=== PATIENT | female | born 1990 | race Caucasian/White ===

== ENCOUNTER 2021-12-11 01:43 | Emergency (ER) | payer OTHER ==
[2021-12-11 02:43] VITALS: O2SAT 96
--- NOTE | 2021-12-11 02:48 | ERPHSYRPT ---
- History of Present Illness Time Seen by Provider: 12/11/21 02:48 Source: patient Exam Limitations: no limitations Patient Subjective Stated Complaint: pt states she has had a fever of 102 to 104 at home. pt has c/o headache 7/10, body aches and pain, rt upper chest pain increases with deep breath. denies shortness of breath. Triage Nursing Assessment: pt alert and oriented, answers questions approp. pt ambulatory with steady gait noted. respirations nonlabored with lungs cta. skin warm and dry. heart rate 75 on monitor, sinus rhythm. Timing/Duration: yesterday, gradual onset, improved Cough Quality/Degree: mild Possible Cause: no prior episodes Modifying Factors: Improves With: activity Associated Symptoms: fever, cough, muscle aches Allergies/Adverse Reactions: No Known Drug Allergies Allergy (Verified 12/11/21 02:43) Hx Tetanus, Diphtheria Vaccination/Date Given: Yes Hx Influenza Vaccination/Date Given: No Hx Pneumococcal Vaccination/Date Given: No Immunizations Up to Date: Yes Travel Risk - International Travel Have you traveled outside of the country in past 3 weeks: No - Coronavirus Screening Are you exhibiting any of the following symptoms?: Yes Symptoms: Fever, Cough: New Onset, Headaches/Body Aches/Fatigue Close contact with a COVID-19 positive Pt in past 14-21 Days: No - Vaccine Status Have you recieved a Covid-19 vaccination: No - Review of Systems Constitutional: Fever, Fatigue, Malaise Eyes: No Symptoms Ears, Nose, & Throat: No Symptoms Respiratory: No Symptoms Cardiac: No Symptoms Abdominal/Gastrointestinal: No Symptoms Genitourinary Symptoms: No Symptoms Musculoskeletal: No Symptoms Skin: No Symptoms Neurological: No Symptoms Psychological: No Symptoms Endocrine: No Symptoms Hematologic/Lymphatic: No Symptoms Immunological/Allergic: No Symptoms All Other Systems: Reviewed and Negative - Past Medical History Pertinent Past Medical History: No - Past Surgical History Past Surgical History: No - Social History Smoking Status: Former smoker Exposure to second hand smoke: No Patient Lives Alone: No - Female History Hx Last Menstrual Period: nov 23 Hx Now: No - Nursing Vital Signs Nursing Vital Signs: Initial Vital Signs Temperature 99.4 F 12/11/21 02:25 Pulse Rate 82 12/11/21 02:25 Respiratory Rate 18 12/11/21 02:25 Blood Pressure 109/70 12/11/21 02:25 O2 Sat by Pulse Oximetry 96 12/11/21 02:25 Pain Scale Pain Intensity 5 - Physical Exam General Appearance: mild distress Eye Exam: PERRL/EOMI, eyes nml inspection Ears, Nose, Throat Exam: normal ENT inspection, TMs normal, pharynx normal, moist mucous membranes Neck Exam: normal inspection, non-tender Respiratory Exam: normal breath sounds, airway intact Cardiovascular Exam: regular rate/rhythm, normal heart sounds Gastrointestinal/Abdomen Exam: soft, normal bowel sounds Pelvic Exam: not done Rectal Exam: deferred Back Exam: normal inspection Extremity Exam: normal inspection, normal range of motion Neurologic Exam: alert, oriented x 3, cooperative Skin Exam: normal color SpO2 Interpretation: normal SpO2: 96 O2 Delivery: Room Air - Course Nursing assessment & vital signs reviewed: Yes - Radiology Exams CXR X-ray Interpretation: Interpreted by me, Negative, No Pneumonia Ordered Tests: Active Orders 24 hr Category Date Time Status CHEST 1 VIEW (PORTABLE) Stat Exams 12/11/21 04:01 Taken CBC W DIFF Stat Lab 12/11/21 03:37 Completed CMP Stat Lab 12/11/21 03:37 Completed HCG QUALITATIVE,SERUM Stat Lab 12/11/21 03:37 Completed INFLUENZA A+B LUDIVINA Stat Lab 12/11/21 03:37 Completed Medication Summary Discontinued Medications Generic Name Dose Route Start Last Admin Trade Name Freq PRN Reason Stop Dose Admin Hydrocodone Bitart/Acetaminophen 1 tablet 12/11/21 03:35 12/11/21 03:45 Hydrocodone/Acetamin 10-325 Mg Tablet PO 12/11/21 03:36 1 tablet Q4H PRN ONE Administration Lab/Rad Data: Laboratory Result Diagrams 12/11/21 03:37 12/11/21 03:37 Laboratory Results 12/11/21 12/11/21 12/11/21 Range/Units 03:37 03:37 03:37 WBC (4.0-10.5) K/mm3 RBC (4.1-5.4) M/mm3 Hgb (12.0-16.0) gm/dl Hct (35-47) % MCV (78-100) fl MCH (26-32) pg MCHC (32-36) g/dl RDW (11.5-14.0) % Plt Count (150-450) K/mm3 MPV (7.5-11.0) fl Gran % (36.0-66.0) % Eos # (Auto) (0-0.5) Absolute Lymphs (auto) (1.0-4.6) Absolute Monos (auto) (0.0-1.3) Lymphocytes % (24.0-44.0) % Monocytes % (0.0-12.0) % Eosinophils % (0.00-5.0) % Basophils % (0.0-0.4) % Absolute Granulocytes (1.4-6.9) Basophils # (0-0.4) Sodium 135 L (137-145) mmol/L Potassium 3.7 (3.5-5.1) mmol/L Chloride 104 (98-107) mmol/L Carbon Dioxide 23 (22-30) mmol/L Anion Gap 11.1 (5-15) MEQ/L BUN 9 (7-17) mg/dL Creatinine 0.73 (0.52-1.04) mg/dL Estimated GFR > 60.0 ML/MIN Glucose 89 (74-106) mg/dL Calcium 8.2 L (8.4-10.2) mg/dL Total Bilirubin 0.50 (0.2-1.3) mg/dL AST 28 (14-36) U/L ALT 14 (0-35) U/L Alkaline Phosphatase 70 (38-126) U/L Serum Total Protein 6.5 (6.3-8.2) g/dL Albumin 3.9 (3.5-5.0) g/dL Serum , Qual NEGATIVE (Negative) Influenza Type A Ag NEGATIVE (NEGATIVE) Influenza Type B Ag NEGATIVE (NEGATIVE) Slides for Path Review 12/11/21 Range/Units 03:37 WBC 5.4 (4.0-10.5) K/mm3 RBC 4.04 L (4.1-5.4) M/mm3 Hgb 12.3 (12.0-16.0) gm/dl Hct 38.8 (35-47) % MCV 96.0 (78-100) fl MCH 30.4 (26-32) pg MCHC 31.7 L (32-36) g/dl RDW 12.2 (11.5-14.0) % Plt Count 156 (150-450) K/mm3 MPV 10.7 (7.5-11.0) fl Gran % 80.7 H (36.0-66.0) % Eos # (Auto) 0.02 (0-0.5) Absolute Lymphs (auto) 0.47 L (1.0-4.6) Absolute Monos (auto) 0.54 (0.0-1.3) Lymphocytes % 8.7 L (24.0-44.0) % Monocytes % 10.0 (0.0-12.0) % Eosinophils % 0.4 (0.00-5.0) % Basophils % 0.2 (0.0-0.4) % Absolute Granulocytes 4.37 (1.4-6.9) Basophils # 0.01 (0-0.4) Sodium (137-145) mmol/L Potassium (3.5-5.1) mmol/L Chloride (98-107) mmol/L Carbon Dioxide (22-30) mmol/L Anion Gap (5-15) MEQ/L BUN (7-17) mg/dL Creatinine (0.52-1.04) mg/dL Estimated GFR ML/MIN Glucose (74-106) mg/dL Calcium (8.4-10.2) mg/dL Total Bilirubin (0.2-1.3) mg/dL AST (14-36) U/L ALT (0-35) U/L Alkaline Phosphatase (38-126) U/L Serum Total Protein (6.3-8.2) g/dL Albumin (3.5-5.0) g/dL Serum , Qual (Negative) Influenza Type A Ag (NEGATIVE) Influenza Type B Ag (NEGATIVE) Slides for Path Review YES - Progress Progress: improved Air Movement: good Progress Note: 12/11/21 06:04 COVID symptoms, test sent out. She asks for pain med for the EDUARDO, uncomfortable, OTC med not helping, rx a few norco. Blood Culture(s) Obtained: No Antibiotics given: No Counseled pt/family regarding: lab results, diagnosis, need for follow-up, rad results - Departure Departure Disposition: Home Clinical Impression: Viral syndrome Condition: Stable Critical Care Time: No Referrals: DOCTOR,NO FAMILY [Primary Care Provider] - Follow up/PCP as directed Instructions: Headache, Adult, Coronavirus Disease 2019 (COVID-19) (DC) Additional Instructions: COVID test is pending. OTC med as helpful. Follow COVID guidelines for now. Prescriptions: Hydrocodone/Acetaminophen [Hydrocodone-Acetamin 7.5-325] 1 each PO Q6H PRN PRN #10 tablet MDD 4 PRN Reason: Pain
[2021-12-11] MEDS ORDERED: HYDROCODONE-ACETAMIN 10-325 MG PO ONE (03:35)
[2021-12-11 03:40] LABS: Absolute Neutrophil Ct (ANC) 4.37 (1.4-6.9); Basophil (Absolute #) 0.01 (0-0.4); Eosinophil % 0.4 % (0.00-5.0); Eosinophil (Absolute #) 0.02 (0-0.5); Hematocrit 38.8 % (35-47); Hemoglobin 12.3 gm/dl (12.0-16.0); Lymphocyte (Absolute #) 0.47 (1.0-4.6); Lymphocytes % 8.7 % (24.0-44.0); Mean Corpuscular Hemoglobin 30.4 pg (26-32); Mean Corpuscular Hgb Concent. 31.7 g/dl (32-36); Mean Platelet Volume 10.7 fl (7.5-11.0); Monocyte (Absolute #) 0.54 (0.0-1.3); Neutrophil % 80.7 % (36.0-66.0); Platelet Count 156 K/mm3 (150-450); Red Blood Count 4.04 M/mm3 (4.1-5.4); Red Cell Distribution Width 12.2 % (11.5-14.0); White Blood Count 5.4 K/mm3 (4.0-10.5)
[2021-12-11 03:59] LABS: ALBUMIN 3.9 g/dL (3.5-5.0); ALKALINE PHOSPHATASE 70 U/L (38-126); ANION GAP 11.1 MEQ/L (5-15); BLOOD UREA NITROGEN 9 mg/dL (7-17); CHLORIDE 104 mmol/L (98-107); Calcium 8.2 mg/dL (8.4-10.2); Carbon Dioxide 23 mmol/L (22-30); Creatinine 1 0.73 mg/dL (0.52-1.04); EST GLOMERULAR FILTRATION RATE > 60.0 ML/MIN; Glucose 89 mg/dL (74-106); INFLUENZA A NEGATIVE (NEGATIVE); INFLUENZA B NEGATIVE (NEGATIVE); Potassium 3.7 mmol/L (3.5-5.1); SGOT/AST 28 U/L (14-36); SGPT/ALT 14 U/L (0-35); SODIUM 135 mmol/L (137-145); Total Protein 6.5 g/dL (6.3-8.2)
[2021-12-11 04:31] VITALS: PULSE 87
[2021-12-11 05:18] VITALS: BP 111/67
[2021-12-11 05:32] LABS: Slide Review 1 YES
--- NOTE | 2021-12-11 08:09 | XRAY ---
Indication: Fever and cough. Comparison: None Portable chest demonstrates normal heart, lungs, and bony thorax.
== END 2021-12-11 05:40 | disposition home or self-care (01) ==
LOC: ED 01:43
DX: B34.9 Viral infection, unspecified (principal); R50.9 Fever, unspecified; R05.9 Cough, unspecified; R53.83 Other fatigue; Z79.891 Long term (current) use of opiate analgesic
CPT/HCPCS: 36415; 71045; 80053; 81025; 85025; 87400; 99284; U0003; A9270-GY

== ENCOUNTER 2022-09-03 22:26 | Observation (INO) | payer BC ==
[2022-09-03 22:59] LABS: Barbiturate,Urine NEGATIVE (NEGATIVE); Benzodiazepine,Urine NEGATIVE (NEGATIVE); Cocaine,Urine NEGATIVE (NEGATIVE); Methadone,Urine NEGATIVE (NEGATIVE); Opiate,Urine NEGATIVE (NEGATIVE); PCP,Urine NEGATIVE (NEGATIVE); THC,Urine NEGATIVE (NEGATIVE)
[2022-09-03 23:01] LABS: Amphetamine,Urine NEGATIVE (NEGATIVE)
[2022-09-03 23:13] LABS: Bacteria RARE /HPF (NEGATIVE); Epithelial Cells RARE /HPF (FEW); RBC 0-2 /HPF (0-2); WBC 0-2 /HPF (0-5)
[2022-09-03 23:20] LABS: Appearance CLEAR (CLEAR); Bilirubin NEGATIVE (NEGATIVE); Dipstick done @ ? MAIN LAB; Glucose NEGATIVE (NEGATIVE); Ketones NEGATIVE (NEGATIVE); Nitrite NEGATIVE (NEGATIVE); Protein,Urine Dip NEGATIVE (Negative); RBC NEGATIVE Ery/ul (0-5); Urobilinogen 0.2 mg/dL (0-1)
[2022-09-03 23:21] LABS: Urine Cultured Indicated? NO
[2022-09-04 00:01] VITALS: BP 132/88; PULSE 74; O2SAT 98
== END 2022-09-03 23:57 | disposition home or self-care (01) ==
LOC: OB 22:26
PROVIDERS: ADMIT Obstetrics & Gynecology; ATTEND Obstetrics & Gynecology
DX: Z34.83 Encounter for supervision of other normal pregnancy, third trimester (principal); Z3A.36 36 weeks gestation of pregnancy
CPT/HCPCS: 80307; 81015; G0378

== ENCOUNTER 2022-09-12 13:12 | Inpatient (IN) | payer BC ==
[2022-09-12] MEDS ORDERED: Lactated Ringers 1,000 ML IV ONE ×2 (14:12→14:26)
[2022-09-12] MEDS ORDERED: XYLOCAINE 1% HCL 20 ML MDV IJ PRN (14:26)
[2022-09-12] MEDS ORDERED: TYLENOL EXTRA STRENGTH 500 MG PO PRN ×2 (14:26→16:08)
[2022-09-12] MEDS ORDERED: Ephedrine Sulfate 50 MG/ML IV PRN (14:26)
[2022-09-12] MEDS ORDERED: Zofran 4 MG/2 ML VIAL IV PRN (14:26)
[2022-09-12] MEDS ORDERED: PITOCIN 30 UNITS/ LR 500 ML 30 UNITS/500 ML PLAST..BAG IV SCH (14:30)
[2022-09-12] MEDS ORDERED: Lactated Ringers 1,000 ML IV SCH (14:30)
[2022-09-12] MEDS ORDERED: FENTANYL 2 MCG-BUPIV 0.125%-NS 250 ML Epidur 250 ML EPIDURAL SCH (14:30)
[2022-09-12 15:02] LABS: Absolute Neutrophil Ct (ANC) 7.25 x10^3/uL (1.4-6.9); Basophil (Absolute #) 0.04 x10^3/uL (0-0.4); Eosinophil % 0.8 % (0.00-5.0); Eosinophil (Absolute #) 0.08 x10^3/uL (0-0.5); Hematocrit 34.8 % (35-47); Hemoglobin 11.3 g/dL (12.0-16.0); Lymphocyte (Absolute #) 1.44 x10^3/uL (1.0-4.6); Lymphocytes % 15.3 % (24.0-44.0); Mean Cell Volume 90.6 fL (78-100); Mean Corpuscular Hemoglobin 29.4 pg (26-32); Mean Corpuscular Hgb Concent. 32.5 g/dL (32-36); Mean Platelet Volume 10.9 fL (7.5-11.0); Monocyte (Absolute #) 0.57 x10^3/uL (0.0-1.3); Platelet Count 211 x10^3/uL (150-450); Red Blood Count 3.84 x10^6/uL (4.1-5.4); Red Cell Distribution Width 12.9 % (11.5-14.0); White Blood Count 9.4 x10^3/uL (4.0-10.5)
[2022-09-12 15:22] LABS: Benzodiazepine,Urine NEGATIVE (NEGATIVE); Cocaine,Urine NEGATIVE (NEGATIVE); Methadone,Urine NEGATIVE (NEGATIVE); PCP,Urine NEGATIVE (NEGATIVE); THC,Urine NEGATIVE (NEGATIVE)
[2022-09-12 15:28] LABS: Amphetamine,Urine NEGATIVE (NEGATIVE)
[2022-09-12 15:33] LABS: Barbiturate,Urine NEGATIVE (NEGATIVE); Opiate,Urine NEGATIVE (NEGATIVE)
[2022-09-12] MEDS ORDERED: CORTISONE 1% CREAM TP PRN (16:08)
[2022-09-12] MEDS ORDERED: Ambien 10 MG PO PRN (16:08)
[2022-09-12] MEDS ORDERED: Dermoplast Spray TP PRN (16:08)
[2022-09-12] MEDS ORDERED: LANSINOH 40 GM TOP PRN (16:08)
[2022-09-12] MEDS ORDERED: Dulcolax 10 MG SUPP PR PRN (16:08)
[2022-09-12] MEDS ORDERED: Anucort-HC SUPPOSITORY PR PRN (16:08)
[2022-09-12] MEDS ORDERED: TUCKS TP PRN (16:08)
[2022-09-12] MEDS ORDERED: Adacel Vial IM ONE (16:08)
[2022-09-12] MEDS ORDERED: Mylicon 80MG PO PRN (16:08)
[2022-09-12 16:29] LABS: ABO TYPING O; Antibody Screen NEGATIVE (NEGATIVE); RH TYPING POSITIVE
[2022-09-13] MEDS: MOTRIN 400 MG PO PRN ×3 (05:06→20:57)
[2022-09-13 05:14] LABS: Absolute Neutrophil Ct (ANC) 7.22 x10^3/uL (1.4-6.9); Basophil (Absolute #) 0.05 x10^3/uL (0-0.4); Eosinophil % 1.4 % (0.00-5.0); Eosinophil (Absolute #) 0.16 x10^3/uL (0-0.5); Hemoglobin 9.7 g/dL (12.0-16.0); Lymphocyte (Absolute #) 2.76 x10^3/uL (1.0-4.6); Lymphocytes % 24.6 % (24.0-44.0); Mean Cell Volume 90.4 fL (78-100); Mean Corpuscular Hemoglobin 29.2 pg (26-32); Mean Corpuscular Hgb Concent. 32.3 g/dL (32-36); Mean Platelet Volume 10.8 fL (7.5-11.0); Monocyte (Absolute #) 0.93 x10^3/uL (0.0-1.3); Monocytes % 8.3 % (0.0-12.0); Neutrophil % 64.6 % (36.0-66.0); Platelet Count 186 x10^3/uL (150-450); Red Blood Count 3.32 x10^6/uL (4.1-5.4); White Blood Count 11.2 x10^3/uL (4.0-10.5)
--- NOTE | 2022-09-13 07:36 | PCM.NOTE ---
Date and Time: 09/13/22734 Subjective Assessment: ppd 1 sp pt resting in bed and doing well able to ambulate and tolerate diet. vss afebrile abd; soft uterus; firm lochia; mild hgb; 9.7 ap sp ppd 1 dc home tomorrow fu office 3 wks OBJECTIVE DATA Vital Signs: Vital Signs - 24 hr Temp Pulse Resp BP BP Pulse Ox 09/13/22 02:00 98.3 F 67 18 134/80 98 09/13/22 00:00 98.7 F 77 18 93/58 96 09/12/22 20:00 98.7 F 77 18 93/58 96 09/12/22 17:00 78 18 133/72 09/12/22 16:30 62 16 131/75 09/12/22 16:10 72 18 134/75 09/12/22 15:55 98.3 F 81 22 144/74 09/12/22 15:40 88 22 136/62 09/12/22 15:08 107 H 22 124/85 09/12/22 14:35 83 24 09/12/22 14:27 16 112/80 09/12/22 14:00 98.3 F 62 16 112/80 Pain Assessment - Last Documented Pain Intensity [Anterior] 4 Pain Intensity 0 Pain Scale Used 0-10 Pain Scale Intake and Output: Intake & Output 09/10/22 09/11/22 09/12/22 09/13/22 11:59 11:59 11:59 11:59 Intake Total 1500 Balance 1500 Weight 60.328 kg Lab Results: Lab Results-Last 24 Hours 09/12/22 09/12/22 09/12/22 Range/Units 14:27 14:55 15:12 WBC 9.4 (4.0-10.5) x10^3/uL RBC 3.84 L (4.1-5.4) x10^6/uL Hgb 11.3 L (12.0-16.0) g/dL Hct 34.8 L (35-47) % MCV 90.6 (78-100) fL MCH 29.4 (26-32) pg MCHC 32.5 (32-36) g/dL RDW 12.9 (11.5-14.0) % Plt Count 211 (150-450) x10^3/uL MPV 10.9 (7.5-11.0) fL Gran % 77.0 H (36.0-66.0) % Immature Gran % (Auto) 0.5 H (0.00-0.4) % Nucleat RBC Rel Count 0.0 (0.00-0.1) % Eos # (Auto) 0.08 (0-0.5) x10^3/uL Immature Gran # (Auto) 0.05 H (0.00-0.03) x10^3u/L Absolute Lymphs (auto) 1.44 (1.0-4.6) x10^3/uL Absolute Monos (auto) 0.57 (0.0-1.3) x10^3/uL Absolute Nucleated RBC 0.00 (0.00-0.01) x10^3u/L Lymphocytes % 15.3 L (24.0-44.0) % Monocytes % 6.0 (0.0-12.0) % Eosinophils % 0.8 (0.00-5.0) % Basophils % 0.4 (0.0-0.4) % Absolute Granulocytes 7.25 H (1.4-6.9) x10^3/uL Basophils # 0.04 (0-0.4) x10^3/uL Urine Opiates Level NEGATIVE (NEGATIVE) Ur Methadone NEGATIVE (NEGATIVE) Urine Barbiturates NEGATIVE (NEGATIVE) Ur Phencyclidine (PCP) NEGATIVE (NEGATIVE) Urine Amphetamine NEGATIVE (NEGATIVE) U Benzodiazepine Level NEGATIVE (NEGATIVE) Urine Cocaine NEGATIVE (NEGATIVE) Urine Marijuana (THC) NEGATIVE (NEGATIVE) ABO Group O Rh Factor POSITIVE Antibody Screen NEGATIVE (NEGATIVE) 09/13/22 Range/Units 05:00 WBC 11.2 H (4.0-10.5) x10^3/uL RBC 3.32 L (4.1-5.4) x10^6/uL Hgb 9.7 L (12.0-16.0) g/dL Hct 30.0 L (35-47) % MCV 90.4 (78-100) fL MCH 29.2 (26-32) pg MCHC 32.3 (32-36) g/dL RDW 13.0 (11.5-14.0) % Plt Count 186 (150-450) x10^3/uL MPV 10.8 (7.5-11.0) fL Gran % 64.6 (36.0-66.0) % Immature Gran % (Auto) 0.7 H (0.00-0.4) % Nucleat RBC Rel Count 0.0 (0.00-0.1) % Eos # (Auto) 0.16 (0-0.5) x10^3/uL Immature Gran # (Auto) 0.08 H (0.00-0.03) x10^3u/L Absolute Lymphs (auto) 2.76 (1.0-4.6) x10^3/uL Absolute Monos (auto) 0.93 (0.0-1.3) x10^3/uL Absolute Nucleated RBC 0.00 (0.00-0.01) x10^3u/L Lymphocytes % 24.6 (24.0-44.0) % Monocytes % 8.3 (0.0-12.0) % Eosinophils % 1.4 (0.00-5.0) % Basophils % 0.4 (0.0-0.4) % Absolute Granulocytes 7.22 H (1.4-6.9) x10^3/uL Basophils # 0.05 (0-0.4) x10^3/uL Urine Opiates Level (NEGATIVE) Ur Methadone (NEGATIVE) Urine Barbiturates (NEGATIVE) Ur Phencyclidine (PCP) (NEGATIVE) Urine Amphetamine (NEGATIVE) U Benzodiazepine Level (NEGATIVE) Urine Cocaine (NEGATIVE) Urine Marijuana (THC) (NEGATIVE) ABO Group Rh Factor Antibody Screen (NEGATIVE) Assessment/Plan (1) Vaginal delivery Current Visit: Yes Status: Acute Code(s): O80 - ENCOUNTER FOR FULL-TERM UNCOMPLICATED DELIVERY
--- NOTE | 2022-09-13 07:39 | PCM.DS ---
Discharge Summary Date of Admission: 09/12/22 14:09 Admitting Physician: ANGIE SHANKAR DO Consults: Consults on Case 09/12/22 14:27 Notify Anesthesia Provider PRN 09/12/22 16:08 Notify Physician ROUTINE Primary Care Provider: NO FAMILY DOCTOR Allergies Allergies Penicillins Allergy (Verified 09/03/22 22:46) Hospital Summary - Hospital Course Hospital Course: pt admitted on sep 12 for being in labor and nonreasurring tracing with late deceleration variable decelerations noted on admission. pt subsequently h ad srom and delivered live baby boy without complication. during period did well able to ambulate and tolerate diet. pt at this time stable for discharge on sep 14. all questions answered to her satisfaction and was advised to fu in office in 3 wks. stable hgb at 9.7 - Vitals & Intake/Output Vital Signs: Vital Signs Temperature 98.3 F 09/13/22 02:00 Pulse Rate 67 09/13/22 02:00 Respiratory Rate 18 09/13/22 02:00 Blood Pressure 134/80 09/13/22 02:00 O2 Sat by Pulse Oximetry 98 09/13/22 02:00 Intake & Output: Intake & Output 09/10/22 09/11/22 09/12/22 09/13/22 11:59 11:59 11:59 11:59 Intake Total 1500 Balance 1500 Weight 60.328 kg - Lab Result Diagrams: 09/13/22 05:00 Lab Results-Last 24 Hrs: Lab Results-Last 24 Hours 09/12/22 09/12/22 09/12/22 Range/Units 14:27 14:55 15:12 WBC 9.4 (4.0-10.5) x10^3/uL RBC 3.84 L (4.1-5.4) x10^6/uL Hgb 11.3 L (12.0-16.0) g/dL Hct 34.8 L (35-47) % MCV 90.6 (78-100) fL MCH 29.4 (26-32) pg MCHC 32.5 (32-36) g/dL RDW 12.9 (11.5-14.0) % Plt Count 211 (150-450) x10^3/uL MPV 10.9 (7.5-11.0) fL Gran % 77.0 H (36.0-66.0) % Immature Gran % (Auto) 0.5 H (0.00-0.4) % Nucleat RBC Rel Count 0.0 (0.00-0.1) % Eos # (Auto) 0.08 (0-0.5) x10^3/uL Immature Gran # (Auto) 0.05 H (0.00-0.03) x10^3u/L Absolute Lymphs (auto) 1.44 (1.0-4.6) x10^3/uL Absolute Monos (auto) 0.57 (0.0-1.3) x10^3/uL Absolute Nucleated RBC 0.00 (0.00-0.01) x10^3u/L Lymphocytes % 15.3 L (24.0-44.0) % Monocytes % 6.0 (0.0-12.0) % Eosinophils % 0.8 (0.00-5.0) % Basophils % 0.4 (0.0-0.4) % Absolute Granulocytes 7.25 H (1.4-6.9) x10^3/uL Basophils # 0.04 (0-0.4) x10^3/uL Urine Opiates Level NEGATIVE (NEGATIVE) Ur Methadone NEGATIVE (NEGATIVE) Urine Barbiturates NEGATIVE (NEGATIVE) Ur Phencyclidine (PCP) NEGATIVE (NEGATIVE) Urine Amphetamine NEGATIVE (NEGATIVE) U Benzodiazepine Level NEGATIVE (NEGATIVE) Urine Cocaine NEGATIVE (NEGATIVE) Urine Marijuana (THC) NEGATIVE (NEGATIVE) ABO Group O Rh Factor POSITIVE Antibody Screen NEGATIVE (NEGATIVE) 09/13/22 Range/Units 05:00 WBC 11.2 H (4.0-10.5) x10^3/uL RBC 3.32 L (4.1-5.4) x10^6/uL Hgb 9.7 L (12.0-16.0) g/dL Hct 30.0 L (35-47) % MCV 90.4 (78-100) fL MCH 29.2 (26-32) pg MCHC 32.3 (32-36) g/dL RDW 13.0 (11.5-14.0) % Plt Count 186 (150-450) x10^3/uL MPV 10.8 (7.5-11.0) fL Gran % 64.6 (36.0-66.0) % Immature Gran % (Auto) 0.7 H (0.00-0.4) % Nucleat RBC Rel Count 0.0 (0.00-0.1) % Eos # (Auto) 0.16 (0-0.5) x10^3/uL Immature Gran # (Auto) 0.08 H (0.00-0.03) x10^3u/L Absolute Lymphs (auto) 2.76 (1.0-4.6) x10^3/uL Absolute Monos (auto) 0.93 (0.0-1.3) x10^3/uL Absolute Nucleated RBC 0.00 (0.00-0.01) x10^3u/L Lymphocytes % 24.6 (24.0-44.0) % Monocytes % 8.3 (0.0-12.0) % Eosinophils % 1.4 (0.00-5.0) % Basophils % 0.4 (0.0-0.4) % Absolute Granulocytes 7.22 H (1.4-6.9) x10^3/uL Basophils # 0.05 (0-0.4) x10^3/uL Urine Opiates Level (NEGATIVE) Ur Methadone (NEGATIVE) Urine Barbiturates (NEGATIVE) Ur Phencyclidine (PCP) (NEGATIVE) Urine Amphetamine (NEGATIVE) U Benzodiazepine Level (NEGATIVE) Urine Cocaine (NEGATIVE) Urine Marijuana (THC) (NEGATIVE) ABO Group Rh Factor Antibody Screen (NEGATIVE) Final Diagnosis/Problem List - Final Discharge Diagnosis/Problem (1) Vaginal delivery Current Visit: Yes Status: Acute Code(s): O80 - ENCOUNTER FOR FULL-TERM UNCOMPLICATED DELIVERY - Discharge Disposition: Home, Self-Care Condition: Stable Prescriptions: No Action Valacyclovir HCl [Valtrex] 500 mg PO BID Mv-Mn/Iron/FA/Herbal/Digestive [ One Tablet] 1 each PO DAILY Follow up with: DOCTOR,NO FAMILY [Primary Care Provider] - ANGIE SHANKAR DO [ACTIVE STAFF] - 3 weeks (should fu in office in 3 wks should call office for any issues that may arise)
[2022-09-13] MEDS: Docusate Sodium 100 MG PO SCH ×2 (09:29→20:57)
[2022-09-13] MEDS: FERREX 150 PO SCH (09:30)
--- NOTE | 2022-09-14 08:01 | PCM.NOTE ---
Date and Time: 09/14/22 0800 Subjective Assessment: ppd 1 sp pt resting in bed and doing well vss afebrile abd; soft uterus; firm lochia; mild a/p sp ppd 1 dc home today fu office 3 wks OBJECTIVE DATA Vital Signs: Vital Signs - 24 hr Temp Pulse Resp BP 09/14/22 02:00 98.2 F 75 18 113/58 09/13/22 20:00 98.4 F 78 18 96/65 09/13/22 14:00 98.4 F 85 18 102/56 Pain Assessment - Last Documented Pain Intensity [Anterior] 1 Pain Intensity 0 Pain Scale Used 0-10 Pain Scale Intake and Output: Intake & Output 09/11/22 09/12/22 09/13/22 09/14/22 11:59 11:59 11:59 11:59 Intake Total 4500 1200 Balance 4500 1200 Weight 60.328 kg Assessment/Plan (1) Vaginal delivery Current Visit: Yes Status: Acute Code(s): O80 - ENCOUNTER FOR FULL-TERM UNCOMPLICATED DELIVERY
[2022-09-14 09:22] VITALS: BP 126/75; PULSE 64; O2SAT 94
[2022-09-14] MEDS: MOTRIN 400 MG PO PRN (10:34)
[2022-09-14] MEDS: FERREX 150 PO SCH (11:11)
[2022-09-14 13:40] LABS: HBsAg Screen Negative (Negative)
[2022-09-15 08:51] LABS: HBsAg Screen Negative (Negative)
== END 2022-09-14 10:55 | disposition home or self-care (01) | DRG 807 ==
LOC: OB 13:12 → OBSVTOIN 14:09
PROVIDERS: ADMIT Obstetrics & Gynecology; ATTEND Obstetrics & Gynecology
PROC: 10E0XZZ Delivery of Products of Conception, External Approach (ICD-10-PCS; principal; 2022-09-12)
DX: O76 Abnormality in fetal heart rate and rhythm complicating labor and delivery (principal); Z37.0 Single live birth; Z3A.37 37 weeks gestation of pregnancy; Z20.828 Contact with and (suspected) exposure to other viral communicable diseases
CPT/HCPCS: 36415; 59400; 80307; 85025; 86850; 86900; 86901; 87340; 90715; J2590; A9270-GY

== ENCOUNTER 2023-02-17 20:41 | Emergency (ER) | payer BC ==
--- NOTE | 2023-02-17 20:49 | ERPHSYRPT ---
- History of Present Illness Time Seen by Provider: 02/17/23 20:49 Historian: patient Exam Limitations: no limitations Physician History: This is a 32-year-old white female patient who is breast-feeding because she states the child will not take a bottle feed and presents with right-sided abdominal pain that was relatively sudden in onset this evening prior to arrival. In the last 2 months she has had intermittent episodes of this particularly after eating. For lunch today, the patient had pizza. Later in the evening prior to arrival, she had the pain onset. Usually she has some nausea associated with it but today she did not have the associated nausea. Patient arrives to the emergency department and her pain is still present but subsiding. Patient has not noticed any dark urine or acholic stools. She has not noticed her skin or eyes having a yellow tinge. Patient delivered a child in August 2022. Patient denies fever. Patient denies chest pain. Patient denies shortness of breath. She has not had any diarrhea Timing/Duration: today, worse Quality: sharpness Abdominal Pain Onset Location: RUQ Pain Radiation: no radiation Severity of Pain-Current: mild Modifying Factors: Improves With: nothing Associated Symptoms: denies symptoms Previous symptoms: same symptoms as today, no recent treatment Allergies/Adverse Reactions: Penicillins Allergy (Verified 02/17/23 20:55) Home Medications: Mv-Mn/Iron/FA/Herbal/Digestive [ One Tablet] 1 each PO DAILY 09/03/22 [History] Medroxyprogesterone Acetate [Depo-Subq Provera 104] 150 mg IM UD 02/17/23 [History] Sertraline HCl 50 mg [Zoloft 50 mg Tablet] 50 mg PO DAILY 02/17/23 [History] Hx Tetanus, Diphtheria Vaccination/Date Given: Yes Hx Influenza Vaccination/Date Given: No Hx Pneumococcal Vaccination/Date Given: No Travel Risk - International Travel Have you traveled outside of the country in past 3 weeks: No - Coronavirus Screening Are you exhibiting any of the following symptoms?: No Close contact with a COVID-19 positive Pt in past 14-21 Days: No - Vaccine Status Have you recieved a Covid-19 vaccination: No - Review of Systems Constitutional: No Symptoms Eyes: No Symptoms Ears, Nose, & Throat: No Symptoms Respiratory: No Symptoms Cardiac: No Symptoms Abdominal/Gastrointestinal: Abdominal Pain, No Nausea, No Vomiting (Right side), No Diarrhea, No Constipation Genitourinary Symptoms: No Symptoms Musculoskeletal: No Symptoms Skin: No Symptoms Neurological: No Symptoms Psychological: No Symptoms Endocrine: No Symptoms Hematologic/Lymphatic: No Symptoms Immunological/Allergic: No Symptoms All Other Systems: Reviewed and Negative - Past Medical History Pertinent Past Medical History: No Other Medical History: states hx of hewrpes on valtrex - Past Surgical History Past Surgical History: No - Social History Smoking Status: Former smoker How long have you smoked: 15 YEARS Exposure to second hand smoke: Yes Patient Lives Alone: No - Nursing Vital Signs Nursing Vital Signs: Initial Vital Signs Temperature 98.5 F 02/17/23 20:49 Pulse Rate 60 02/17/23 20:49 Respiratory Rate 16 02/17/23 20:49 Blood Pressure 161/99 02/17/23 20:49 O2 Sat by Pulse Oximetry 97 02/17/23 20:49 Pain Scale Pain Intensity 5 - Physical Exam General Appearance: no apparent distress, alert, anxiety, thin Eye Exam: PERRL/EOMI, eyes nml inspection Ears, Nose, Throat Exam: normal ENT inspection, moist mucous membranes Neck Exam: normal inspection, non-tender, supple, full range of motion Respiratory Exam: normal breath sounds, lungs clear, airway intact, No chest tenderness, No respiratory distress Cardiovascular Exam: regular rate/rhythm, normal heart sounds, normal peripheral pulses Gastrointestinal/Abdomen Exam: soft, normal bowel sounds, tenderness (Mild right upper quadrant to palpation), guarding (Mild right upper quadrant with palpation), No rebound Pelvic Exam: not done Rectal Exam: not done Back Exam: normal inspection, normal range of motion, No CVA tenderness, No vertebral tenderness Extremity Exam: normal inspection, normal range of motion, pelvis stable Neurologic Exam: alert, oriented x 3, cooperative, cryolite recovery operator II-XII nml as tested, normal mood/affect, nml cerebellar function, nml station & gait, sensation nml Skin Exam: normal color, warm, dry Lymphatic Exam: No adenopathy SpO2 Interpretation: normal O2 Delivery: Room Air - Course Nursing assessment & vital signs reviewed: Yes Ordered Tests: Active Orders 24 hr Category Date Time Status IV Insertion STAT Care 02/17/23 21:01 Active ABDOMEN AND PELVIS W/0 CONTRAS [CT] Stat Exams 02/17/23 21:02 Completed AMYLASE Stat Lab 02/17/23 21:15 Completed CBC W DIFF Stat Lab 02/17/23 21:15 Completed CMP Stat Lab 02/17/23 21:15 Completed LIPASE Stat Lab 02/17/23 21:15 Completed UA W/RFX UR CULTURE Stat Lab 02/17/23 21:10 Completed Medication Summary Generic Name Dose Route Start Last Admin Trade Name Mandy PRN Reason Stop Dose Admin Sodium Chloride 1,000 mls @ 999 mls/hr 02/17/23 21:01 02/17/23 21:07 Sodium Chloride 0.9% 1000 Ml IV 02/17/23 22:01 999 mls/hr .[id number] STA Administration Discontinued Medications Generic Name Dose Route Start Last Admin Trade Name Freq PRN Reason Stop Dose Admin Sodium Chloride Confirm 02/17/23 21:04 Sodium Chloride 0.9% 1000 Ml Administered 02/17/23 21:05 Dose 1,000 mls @ ud .ROUTE .STK-MED ONE Ketorolac Tromethamine 30 mg 02/17/23 21:21 02/17/23 21:33 Ketorolac Tromethamine 30 Mg/Ml Inj IV 02/17/23 21:22 30 mg STAT ONE Administration Ketorolac Tromethamine Confirm 02/17/23 21:33 Ketorolac Tromethamine 30 Mg/Ml Inj Administered 02/17/23 21:34 Dose 30 mg .ROUTE .STK-MED ONE Ondansetron HCl 4 mg 02/17/23 21:01 02/17/23 21:07 Ondansetron Hcl 4 Mg/2 Ml Vial IV 02/17/23 21:02 4 mg STAT ONE Administration Ondansetron HCl Confirm 02/17/23 21:04 Ondansetron Hcl 4 Mg/2 Ml Vial Administered 02/17/23 21:05 Dose 4 mg .ROUTE .STK-MED ONE Lab/Rad Data: Laboratory Result Diagrams 02/17/23 21:15 02/17/23 21:15 Laboratory Results 02/17/23 02/17/23 02/17/23 Range/Units 21:15 21:15 21:10 WBC 10.4 (4.0-10.5) x10^3/uL RBC 4.39 (4.1-5.4) x10^6/uL Hgb 13.1 (12.0-16.0) g/dL Hct 40.6 (35-47) % MCV 92.5 (78-100) fL MCH 29.8 (26-32) pg MCHC 32.3 (32-36) g/dL RDW 11.9 (11.5-14.0) % Plt Count 241 (150-450) x10^3/uL MPV 10.6 (7.5-11.0) fL Gran % 57.6 (36.0-66.0) % Immature Gran % (Auto) 0.5 H (0.00-0.4) % Nucleat RBC Rel Count 0.0 (0.00-0.1) % Eos # (Auto) 0.33 (0-0.5) x10^3/uL Immature Gran # (Auto) 0.05 H (0.00-0.03) x10^3u/L Absolute Lymphs (auto) 3.27 (1.0-4.6) x10^3/uL Absolute Monos (auto) 0.69 (0.0-1.3) x10^3/uL Absolute Nucleated RBC 0.00 (0.00-0.01) x10^3u/L Lymphocytes % 31.5 (24.0-44.0) % Monocytes % 6.6 (0.0-12.0) % Eosinophils % 3.2 (0.00-5.0) % Basophils % 0.6 (0.0-0.4) % Absolute Granulocytes 5.98 (1.4-6.9) x10^3/uL Basophils # 0.06 (0-0.4) x10^3/uL Sodium 142 (137-145) mmol/L Potassium 3.8 (3.5-5.1) mmol/L Chloride 106 (98-107) mmol/L Carbon Dioxide 25 (22-30) mmol/L Anion Gap 14.5 (5-15) MEQ/L BUN 14 (7-17) mg/dL Creatinine 0.65 (0.52-1.04) mg/dL Estimated GFR > 60.0 ML/MIN Glucose 87 (74-106) mg/dL Calcium 9.6 (8.4-10.2) mg/dL Total Bilirubin 0.40 (0.2-1.3) mg/dL AST 23 (14-36) U/L ALT 19 (0-35) U/L Alkaline Phosphatase 94 (38-126) U/L Serum Total Protein 7.8 (6.3-8.2) g/dL Albumin 4.7 (3.5-5.0) g/dL Amylase 73 (30-110) U/L Lipase 109 (23-300) U/L Urine Color Yellow (Yellow) Urine Appearance Cloudy A (Clear) Urine pH 7.0 (4.6-8.0) Ur Specific [place] 1.015 (1.005-1.030) Urine Protein Negative (Negative) Urine Glucose (UA) Negative (Negative) mg/dL Urine Ketones Negative (Negative) Urine Blood Negative (Negative) Urine Nitrite Negative (Negative) Urine Bilirubin Negative (Negative) Urine Urobilinogen 1.0 A (0.2) mg/dL Ur Leukocyte Esterase Trace A (Negative) U Hyaline Cast (Auto) NONE SEEN (0-2) /LPF Urine Microscopic RBC 0-2 (0-5) /HPF Urine Microscopic WBC 0-2 (0-5) /HPF Ur Epithelial Cells None Seen (None Seen) /HPF Urine Bacteria None Seen (None Seen) /HPF Urine Culture Reflexed NO (NO) - Progress Progress: improved, pain not gone completely, re-examined Progress Note: 02/17/23 21:59 CAT scan of the abdomen pelvis without contrast shows no acute intra-abdominal or intra pelvic process. The appendix is visualized and it is normal. 02/17/23 21:59 The medical issue of this patient is of moderate complexity. The medical complexity level and work-up performed is determined by review of the patient's past medical history, review of the patient's medication list, review of the patient's drug allergy list, history of present illness, and physical findings on examination. The patient is having right-sided abdominal pain. The work-up includes placement of intravenous line, infusion of intravenous fluids, infusion of Zofran intravenously, infusion of Toradol intravenously, obtaining urinal ysis, performing a CBC, CMP amylase and lipase levels. The results of the study show no acute abnormality. Likely, the patient's symptoms are related to gallbladder issues. Her symptoms are improving. The discharge plan will be for her to avoid any fatty greasy spicy foods. She may use Tylenol and ibuprofen for pain control. She should follow-up with her primary care provider to perform an outpatient gallbladder ultrasound and obtain referral to a general surgeon if indicated. Counseled pt/family regarding: lab results, diagnosis, need for follow-up, rad results Medical Desision Making - Discussion of managment Reviewed:: Test results, Need for additional workup Agreed on:: Treatment plan, need for follow-up - Diagnostic Testing Radiological Interpretation: Reviewed by me - Risk of complications The pt has a mod risk of morbidity or mortality based on: Need for prescription drug management - Departure Departure Disposition: Home Clinical Impression: Right sided abdominal pain Condition: Stable Critical Care Time: No Referrals: DOCTOR,NO FAMILY [Primary Care Provider] - Follow up/PCP as directed Additional Instructions: Drink plenty of clear liquids. Avoid fatty greasy spicy foods. Follow-up with your primary care provider for further evaluation management including ordering an outpatient gallbladder ultrasound and referral to a general surgeon if indicated. Use Tylenol and ibuprofen for pain control. Prescriptions: Ondansetron ODT 4 MG [Zofran Odt 4 mg] 4 mg PO Q6H PRN PRN #10 tablet PRN Reason: Vomiting
[2023-02-17] MEDS ORDERED: Sodium Chloride 0.9% 1000 ML 1,000 ML IV STA (21:01)
[2023-02-17] MEDS ORDERED: Zofran 4 MG/2 ML VIAL IV ONE (21:01)
[2023-02-17] MEDS ORDERED: Zofran 4 MG/2 ML VIAL ONE (21:04)
[2023-02-17] MEDS ORDERED: Sodium Chloride 0.9% 1000 ML 1,000 ML ONE (21:04)
[2023-02-17 21:18] LABS: Absolute Neutrophil Ct (ANC) 5.98 x10^3/uL (1.4-6.9); BASOPHIL % 0.6 % (0.0-0.4); Basophil (Absolute #) 0.06 x10^3/uL (0-0.4); Eosinophil % 3.2 % (0.00-5.0); Eosinophil (Absolute #) 0.33 x10^3/uL (0-0.5); Hematocrit 40.6 % (35-47); Hemoglobin 13.1 g/dL (12.0-16.0); IMMATURE GRAN # 0.05 x10^3u/L (0.00-0.03); IMMATURE GRAN % 0.5 % (0.00-0.4); Lymphocyte (Absolute #) 3.27 x10^3/uL (1.0-4.6); Lymphocytes % 31.5 % (24.0-44.0); Mean Cell Volume 92.5 fL (78-100); Mean Corpuscular Hemoglobin 29.8 pg (26-32); Mean Corpuscular Hgb Concent. 32.3 g/dL (32-36); Mean Platelet Volume 10.6 fL (7.5-11.0); Monocyte (Absolute #) 0.69 x10^3/uL (0.0-1.3); Monocytes % 6.6 % (0.0-12.0); Neutrophil % 57.6 % (36.0-66.0); Platelet Count 241 x10^3/uL (150-450); Red Blood Count 4.39 x10^6/uL (4.1-5.4); Red Cell Distribution Width 11.9 % (11.5-14.0); White Blood Count 10.4 x10^3/uL (4.0-10.5)
[2023-02-17] MEDS ORDERED: TORAdol 30 mg Injection IV ONE (21:21)
[2023-02-17 21:27] LABS: Appearance Cloudy (Clear); Bacteria None Seen /HPF (None Seen); Bilirubin Negative (Negative); Blood Negative (Negative); Epithelial Cells None Seen /HPF (None Seen); Glucose, Urine Negative (Negative); Hyaline Casts NONE SEEN /LPF (0-2); Ketones Negative (Negative); Leukocyte Esterase Trace (Negative); Nitrite Negative (Negative); Protein,Urine Dip Negative (Negative); RBC 0-2 /HPF (0-5); Specific Gravity 1.015 (1.005-1.030); WBC 0-2 /HPF (0-5)
[2023-02-17 21:28] LABS: ADD URINE CULTURE? NO (NO)
[2023-02-17 21:30] LABS: ALBUMIN 4.7 g/dL (3.5-5.0); ALKALINE PHOSPHATASE 94 U/L (38-126); AMYLASE 73 U/L (30-110); ANION GAP 14.5 MEQ/L (5-15); BLOOD UREA NITROGEN 14 mg/dL (7-17); CHLORIDE 106 mmol/L (98-107); Calcium 9.6 mg/dL (8.4-10.2); Carbon Dioxide 25 mmol/L (22-30); Creatinine 1 0.65 mg/dL (0.52-1.04); EST GLOMERULAR FILTRATION RATE > 60.0 ML/MIN; Glucose 87 mg/dL (74-106); LIPASE 109 U/L (23-300); Potassium 3.8 mmol/L (3.5-5.1); SGOT/AST 23 U/L (14-36); SGPT/ALT 19 U/L (0-35); SODIUM 142 mmol/L (137-145); Total Protein 7.8 g/dL (6.3-8.2)
[2023-02-17] MEDS ORDERED: TORAdol 30 mg Injection ONE (21:33)
[2023-02-17 21:46] VITALS: PULSE 58
--- NOTE | 2023-02-17 21:57 | XRAY ---
Indication: Right abdomen pain. Multiple contiguous axial images obtained through the abdomen and pelvis without contrast. Comparison: None Lung bases clear. Heart not enlarged. Noncontrasted stomach and bowel loops appear nonobstructed with normal appendix. Moderate diffuse scattered colonic fecal debris throughout. Nonobstructing faint bilateral nephrocalcinosis. No free fluid/air. Remaining liver, gallbladder, pancreas, spleen, adrenal glands, kidneys, ureters, bladder, uterus, and aorta are unremarkable for noncontrast exam. Osseous structures intact. No ventral or inguinal hernias. Impression: 1. Moderate diffuse fecal stasis. 2. Nonobstructing bilateral nephrocalcinosis.
[2023-02-17 22:05] VITALS: BP 111/67; O2SAT 98
== END 2023-02-17 22:23 | disposition home or self-care (01) ==
LOC: ED 20:41
DX: R10.11 Right upper quadrant pain (principal); Z79.899 Other long term (current) drug therapy; Z28.310 Unvaccinated for COVID-19
CPT/HCPCS: 36000; 36415; 74176; 80053; 81001; 82150; 83690; 85025; 96360; 96374; 99284; J1885; J2405

== ENCOUNTER 2023-03-17 06:07 | Day surgery (SDC) | payer BC ==
[2023-03-17] MEDS ORDERED: Xylocaine-Mpf 2% 5 Ml Vial ONE (06:14)
[2023-03-17] MEDS ORDERED: DIPRIVAN 200 MG/20 ML IV ONE (06:14)
[2023-03-17] MEDS ORDERED: Versed 2 MG/2 ML Injection ONE (06:14)
[2023-03-17 06:21] LABS: HCG URINE TEST NEGATIVE (NEGATIVE)
[2023-03-17] MEDS ORDERED: Lactated Ringers 1,000 ML IV SCH (06:30)
[2023-03-17] MEDS ORDERED: Lactated Ringers 1,000 ML IV ONE (06:38)
[2023-03-17 07:56] VITALS: O2SAT 100
--- NOTE | 2023-03-17 08:10 | OP ---
SURGERY DATE/TIME: 03/17/2023 0710 PREOPERATIVE DIAGNOSIS: Abdominal pain. POSTOPERATIVE DIAGNOSIS: Mild gastritis. PROCEDURE: Esophagogastroduodenoscopy with cold forceps biopsy. SURGEON: Dr. Ricks. ANESTHESIA: Medications were given by the anesthesia department. BRIEF HISTORY: The patient is a 32-year-old white female who has been complaining of abdominal pain for several months. She tried omeprazole and Tums with minimal to no relief. The patient is felt the need to have endoscopic evaluation. She was appraised of the risks of the procedure including the risk of perforation, phlebitis, untoward reaction to medication, sore throat. The patient verbalized her understanding and desired to have the procedure performed. DESCRIPTION OF PROCEDURE: The patient was given the medications by the anesthesia department. She had continuous pulse oximetry, ECG monitoring and intermittent blood pressure monitoring during the examination. She was placed in the left lateral decubitus position. A bite block was placed and the flexible Olympus gastroscope was used to intubate the oropharynx. The scope was easily introduced in the esophagus which appeared to be normal throughout its length. The stomach was entered where normal gastric rugal folds were seen and these distended nicely with insufflation of air. The scope was passed along the greater curvature of the stomach to the antrum. The pylorus was encountered and intubated. The duodenum inspected and found to be normal. The scope is withdrawn towards the stomach. A retroflex view was obtained of the lesser curvature, fundus and cardia regions of the stomach and these appeared to be essentially normal. The scope was then redirected towards the gastric antrum and biopsies were obtained from the gastric antrum to rule out the presence of Helicobacter pylori-type organisms. The scope was then removed from the patient who tolerated the procedure well and was sent back to outpatient recovery in good condition.
[2023-03-17 08:18] VITALS: BP 128/74; PULSE 62
== END 2023-03-17 08:20 | disposition home or self-care (01) ==
LOC: SDC 06:07
PROVIDERS: ATTEND Family Medicine
DX: K29.70 Gastritis, unspecified, without bleeding (principal); R10.9 Unspecified abdominal pain
CPT/HCPCS: 36415; 81025; J2250; J2704

== ENCOUNTER 2023-11-08 17:30 | Emergency (ER) | payer BC ==
[2023-11-08 17:47] VITALS: RESP 18; TEMP 97.2
[2023-11-08 17:51] LABS: HCG URINE TEST NEGATIVE (NEGATIVE)
[2023-11-08 17:55] LABS: Appearance Clear (Clear); Bacteria Rare /HPF (None Seen); Bilirubin Negative (Negative); Blood Negative (Negative); Epithelial Cells None Seen /HPF (None Seen); Glucose, Urine Negative (Negative); Hyaline Casts NONE SEEN /LPF (0-2); Ketones Negative (Negative); Leukocyte Esterase Small (Negative); Nitrite Negative (Negative); Ph 6.5 (4.6-8.0); Protein,Urine Dip Negative (Negative); WBC 21-50 /HPF (0-5)
[2023-11-08 18:05] LABS: ADD URINE CULTURE? YES (NO)
[2023-11-08] MEDS ORDERED: KEFLEX 500 MG PO ONE (18:45)
--- NOTE | 2023-11-08 18:45 | ERPHSYRPT ---
- History of Present Illness Time Seen by Provider: 11/08/23 17:55 Source: patient Exam Limitations: no limitations Patient Subjective Stated Complaint: pt here for a possible UTI for 3 days now. burning with urination, back pain, pt has frequent UTI Triage Nursing Assessment: pt alert, walked in, resp easy, skin w/d/p. abd flat, no edema noted Physician History: This is a 33-year-old white female patient who has urinary tract infection symptoms for the last 3 days including hematuria and dysuria. She states her symptoms are worse today. Patient is breast-feeding. Patient has a history of frequent UTIs. Patient has had Keflex in the past without problems. Patient denies nausea and vomiting. She has no abdominal pain. She has mild flank pain. Timing/Duration: day(s) (3) Activites at Onset: none Quality: burning Onset Location: generalized flank (Mild) Pain Radiation: generalized flank Severity of Pain-Max: mild Severity of Pain-Current: mild Sexual intercourse history: non-contributory Modifying Factors: Improves With: nothing Associated Symptoms: dysuria, lower back pain, other (Hematuria) Allergies/Adverse Reactions: Penicillins Allergy (Verified 11/08/23 17:43) Home Medications: Medroxyprogesterone Acetate [Depo-Subq Provera 104] 150 mg IM UD 02/17/23 [History] Sertraline HCl 50 mg [Zoloft 50 mg Tablet] 50 mg PO DAILY 02/17/23 [History] Hx Tetanus, Diphtheria Vaccination/Date Given: Yes Hx Influenza Vaccination/Date Given: No Hx Pneumococcal Vaccination/Date Given: No Travel Risk - International Travel Have you traveled outside of the country in past 3 weeks: No - Coronavirus Screening Are you exhibiting any of the following symptoms?: No Close contact with a COVID-19 positive Pt in past 14-21 Days: No - Vaccine Status Have you recieved a Covid-19 vaccination: No - Review of Systems Constitutional: No Symptoms Eyes: No Symptoms Ears, Nose, & Throat: No Symptoms Respiratory: No Symptoms Cardiac: No Symptoms Abdominal/Gastrointestinal: No Abdominal Pain Genitourinary Symptoms: Dysuria, Hematuria, Flank Pain (Mild generalized) Musculoskeletal: No Symptoms Skin: No Symptoms Neurological: No Symptoms Psychological: No Symptoms Endocrine: No Symptoms Hematologic/Lymphatic: No Symptoms Immunological/Allergic: No Symptoms All Other Systems: Reviewed and Negative - Past Medical History Pertinent Past Medical History: Yes Neurological History: No Pertinent History ENT History: No Pertinent History Cardiac History: No Pertinent History Respiratory History: No Pertinent History Endocrine Medical History: No Pertinent History, Other Musculoskeletal History: No Pertinent History GI Medical History: No Pertinent History History: No Pertinent History Psycho-Social History: Anxiety, Depression Female Reproductive Disorders: No Pertinent History Other Medical History: 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, sponge kidney, hx uti's - Past Surgical History Past Surgical History: No Neuro Surgical History: No Pertinent History Cardiac: No Pertinent History Respiratory: No Pertinent History Genitourinary: No Pertinent History Musculoskeletal: No Pertinent History Female Surgical History: No Pertinent History Other Surgical History: IUD removal - Social History Smoking Status: Never smoker How long have you smoked: 15 YEARS Exposure to second hand smoke: Yes Drug Use: none Patient Lives Alone: No - Female History Hx Last Menstrual Period: unsure Hx Now: No - Nursing Vital Signs Nursing Vital Signs: Initial Vital Signs Temperature 97.2 F 11/08/23 17:45 Pulse Rate 79 11/08/23 17:45 Respiratory Rate 18 11/08/23 17:45 Blood Pressure 136/91 11/08/23 17:45 O2 Sat by Pulse Oximetry 97 11/08/23 17:45 Pain Scale Pain Intensity 3 - Physical Exam General Appearance: no apparent distress, alert, anxiety Eye Exam: PERRL/EOMI, eyes nml inspection Ears, Nose, Throat Exam: normal ENT inspection, moist mucous membranes Neck Exam: normal inspection, non-tender, supple, full range of motion Respiratory Exam: normal breath sounds, lungs clear, airway intact, No chest tenderness, No respiratory distress Cardiovascular Exam: regular rate/rhythm, normal heart sounds, normal peripheral pulses Gastrointestinal/Abdomen Exam: soft, normal bowel sounds, No tenderness Pelvic Exam: not done Rectal Exam: not done Back Exam: normal inspection, normal range of motion, CVA tenderness (Mild bilateral) Extremity Exam: normal inspection, normal range of motion, pelvis stable Neurologic Exam: alert, oriented x 3, cooperative, social human services assistants II-XII nml as tested, no rmal mood/affect, nml cerebellar function, nml station & gait, sensation nml Skin Exam: normal color, warm, dry Lymphatic Exam: No adenopathy SpO2 Interpretation: normal SpO2: 97 O2 Delivery: Room Air - Course Nursing assessment & vital signs reviewed: Yes Ordered Tests: Active Orders 24 hr Category Date Time Status CULTURE,URINE Stat Lab 11/08/23 17:47 Received HCG QUALITATIVE, URINE Stat Lab 11/08/23 17:40 Completed UA W/RFX UR CULTURE Stat Lab 11/08/23 17:47 Completed Lab/Rad Data: Laboratory Results 11/08/23 11/08/23 Range/Units 17:47 17:40 Urine Color Yellow (Yellow) Urine Appearance Clear (Clear) Urine pH 6.5 (4.6-8.0) Ur Specific [place] 1.020 (1.005-1.030) Urine Protein Negative (Negative) Urine Glucose (UA) Negative (Negative) mg/dL Urine Ketones Negative (Negative) Urine Blood Negative (Negative) Urine Nitrite Negative (Negative) Urine Bilirubin Negative (Negative) Urine Urobilinogen 1.0 A (0.2) mg/dL Ur Leukocyte Esterase Small A (Negative) U Hyaline Cast (Auto) NONE SEEN (0-2) /LPF Urine Microscopic RBC 3-5 (0-5) /HPF Urine Microscopic WBC 21-50 A (0-5) /HPF Ur Epithelial Cells None Seen (None Seen) /HPF Urine Bacteria Rare A (None Seen) /HPF Urine Culture Reflexed YES (NO) Urine HCG, Qual NEGATIVE (NEGATIVE) - Progress Progress: unchanged Progress Note: 11/08/23 18:44 This patient's medical issue is 1 of low complexity. Level complex in the workup performed is based on review the patient's past medical history, review of the patient's medication list, reviewed patient's drug allergy list, history present illness and physical findings on examination. Workup in this patient includes urine test as well as urinalysis. Blood Culture(s) Obtained: No Counseled pt/family regarding: lab results, diagnosis, need for follow-up Medical Desision Making - Diagnostic Testing Diagnostic test were ordered, analyzed, and reviewed by me: Yes - Risk of complications The pt has a mod risk of morbidity or mortality based on: Need for prescription drug management - Departure Departure Disposition: Home Clinical Impression: UTI (urinary tract infection) Condition: Stable Critical Care Time: No Referrals: JUVE CAAMCHO [Primary Care Provider] - Follow up/PCP as directed Additional Instructions: Drink plenty of fluids. Take your antibiotics as prescribed. Follow-up with your primary care provider for further evaluation management. Prescriptions: Cephalexin Mh 500 mg [Keflex 500 mg] 500 mg PO TID #21 cap
[2023-11-08] MEDS ORDERED: KEFLEX 500 MG ONE ×2 (18:47→18:51)
[2023-11-08 18:53] VITALS: BP 110/79; PULSE 77; O2SAT 99
== END 2023-11-08 19:13 | disposition home or self-care (01) ==
LOC: ED 17:30
DX: N39.0 Urinary tract infection, site not specified (principal); R30.0 Dysuria; R31.9 Hematuria, unspecified; Z79.899 Other long term (current) drug therapy; Z28.310 Unvaccinated for COVID-19
CPT/HCPCS: 81001; 81025; 87077; 87086; 87186; 99282; A9270-GY

== ENCOUNTER 2024-07-09 07:18 | Emergency (ER) | payer BC ==
[2024-07-09 07:33] VITALS: TEMP 97.7
--- NOTE | 2024-07-09 07:50 | ERPHSYRPT ---
- History of Present Illness Time Seen by Provider: 07/09/24 07:35 Source: patient Exam Limitations: no limitations Patient Subjective Stated Complaint: C/O pain in left forearm, wrist, hand. Patient states she helped roll up a bounce house Monday. Denies any other use, injury, falls. Triage Nursing Assessment: Patient ambulated back to ER without difficulties. Patient is alert and oriented. No SOB. Skin tone normal. NO skin alterations noted to areas of pain. Patient has range in LUE but c/o pain when turning forearm in a certain mannger or when attempting to pick anything up with her left hand. Physician History: 33-year-old female presents to the emergency department for evaluation of pain to her left hand wrist and forearm. Patient states she was rolling up a very heavy inflatable balloon yesterday. This morning patient awoke with pain. Patient declines pain medication. Pain described as an ache that is localized. No radiation. Pain worse with movement of the hand and wrist. No pain with motion at the elbow or shoulder. No blunt trauma. Pain resolves with rest. No associated fever no other associated symptomology. Patient otherwise feels well. She voices no other complaints or concerns at this time. Portions of this note were created with voice recognition technology. There may be grammatical, spelling, punctuation or sound alike errors Timing/Duration: today Severity: moderate Modifying Factors: Improves With: nothing Associated Symptoms: denies symptoms Allergies/Adverse Reactions: Penicillins Allergy (Verified 07/09/24 07:34) Home Medications: Medroxyprogesterone Acetate [Depo-Subq Provera 104] 150 mg IM UD 02/17/23 [History] Sertraline HCl 50 mg [Zoloft 50 mg Tablet] 50 mg PO DAILY 02/17/23 [History] Hx Tetanus, Diphtheria Vaccination/Date Given: Yes Hx Influenza Vaccination/Date Given: No Hx Pneumococcal Vaccination/Date Given: No Immunizations Up to Date: Yes Travel Risk - International Travel Have you traveled outside of the country in past 3 weeks: No - Emerging Infectious Disease Are you exhibiting symptoms associated with any current EIDs: No - Review of Systems Constitutional: No Symptoms, No Fever, No Chills Eyes: No Symptoms Ears, Nose, & Throat: No Symptoms Respiratory: No Symptoms, No Cough, No Dyspnea Cardiac: No Symptoms, No Chest Pain, No Edema, No Syncope Abdominal/Gastrointestinal: No Symptoms, No Abdominal Pain, No Nausea, No Vomiting, No Diarrhea Genitourinary Symptoms: No Symptoms, No Dysuria Musculoskeletal: No Symptoms, No Back Pain, No Neck Pain Skin: No Symptoms, No Rash Neurological: No Symptoms, No Dizziness, No Focal Weakness, No Sensory Changes Psychological: No Symptoms Endocrine: No Symptoms Hematologic/Lymphatic: No Symptoms Immunological/Allergic: No Symptoms All Other Systems: Reviewed and Negative - Past Medical History Pertinent Past Medical History: Yes Neurological History: No Pertinent History ENT History: No Pertinent History Cardiac History: No Pertinent History Respiratory History: No Pertinent History Endocrine Medical History: No Pertinent History, Other Musculoskeletal History: No Pertinent History GI Medical History: No Pertinent History History: No Pertinent History Psycho-Social History: Anxiety, Depression Female Reproductive Disorders: No Pertinent History Other Medical History: herpes, sponge kidney, hx uti's - Past Surgical History Past Surgical History: No Neuro Surgical History: No Pertinent History Cardiac: No Pertinent History Respiratory: No Pertinent History Genitourinary: No Pertinent History Musculoskeletal: No Pertinent History Female Surgical History: No Pertinent History Other Surgical History: IUD removal - Female History Hx Now: No - Social History Smoking Status: Former smoker How long have you smoked: 15 YEARS Exposure to second hand smoke: Yes Drug Use: none Patient Lives Alone: No - Social Determinants of Health Will the patient participate in the screening: Yes Do you worry about a steady place to live?: No Do you have any problems with any of the following?: No known problems In the past 12 months,have you had to go without utilities?: No Transportation Issues: No Has anyone in your support network made you feel unsafe?: No Have you or anyone in your house had to go without enough: No - Nursing Vital Signs Nursing Vital Signs: Initial Vital Signs Temperature 97.7 F 07/09/24 07:25 Pulse Rate 87 07/09/24 07:25 Respiratory Rate 17 07/09/24 07:25 Blood Pressure 134/92 07/09/24 07:25 O2 Sat by Pulse Oximetry 97 07/09/24 07:25 Pain Scale Pain Intensity 7 - Physical Exam General Appearance: no apparent distress, alert Eye Exam: PERRL/EOMI, eyes nml inspection Ears, Nose, Throat Exam: normal ENT inspection, TMs normal, pharynx normal, moist mucous membranes Neck Exam: normal inspection, non-tender, supple, full range of motion Respiratory Exam: normal breath sounds, lungs clear, airway intact, No respirat ory distress Cardiovascular Exam: regular rate/rhythm, normal heart sounds, normal peripheral pulses Gastrointestinal/Abdomen Exam: soft, normal bowel sounds, No tenderness, No mass Back Exam: normal inspection, normal range of motion, No CVA tenderness, No vertebral tenderness Extremity Exam: normal inspection, normal range of motion, pelvis stable, other (The involved left upper extremity is neuro vas intact distally compartments are soft cap refill less than 2 seconds. Radial pulse palpable. Sensation to light touch intact. No open or draining lesions no obvious swelling.) Neurologic Exam: alert, oriented x 3, cooperative, normal mood/affect, nml cerebellar function, nml station & gait, sensation nml, No motor deficits Skin Exam: normal color, warm, dry, No rash Lymphatic Exam: No adenopathy SpO2 Interpretation: normal SpO2: 97 O2 Delivery: Room Air - Course Nursing assessment & vital signs reviewed: Yes - Radiology Exams Wrist X-ray Interpretation: Interpreted by me (No fracture or dislocation) Hand X-ray Interpretation: Interpreted by me (No fracture or dislocation) Forearm X-ray Interpretation: Interpreted by me (No fracture or dislocation) Ordered Tests: Active Orders 24 hr Category Date Time Status FOREARM Stat Exams 07/09/24 07:24 Completed HAND (MINIMUM 3 VIEWS) Stat Exams 07/09/24 07:24 Completed WRIST (MIN 3 VIEWS) Stat Exams 07/09/24 07:24 Completed Medication Summary Discontinued Medications Generic Name Dose Route Start Last Admin Trade Name Freq PRN Reason Stop Dose Admin Ketorolac Tromethamine 10 mg 07/09/24 08:15 07/09/24 08:31 Ketorolac Tromethamine 10 Mg Tablet PO 07/09/24 08:16 10 mg NOW ONE Administration - Progress Progress: improved Progress Note: 33-year-old female presents to our ED with soreness to her left forearm wrist and hand. Patient was rolling up a heavy blowup slide. Physical exam reveals the involved extremity to be neurovascular intact distally compartments are soft cap refill less than 2 seconds. Radial pulse palpable. Sensation intact. Patient has some discomfort with passive extension of the left wrist which indicates strain of the wrist flexors. Some tenderness of the palmar hand musculature. Overlying soft tissue intact. No open or draining lesions. No signs of infection. X-rays negative for acute findings. No fracture dislocations. No obvious soft tissue abnormalities on x-ray. Patient placed in left upper extremity sling. Patient declined pain medication. Patient otherwise feels well. Patient will be discharged home. She agrees to follow-up with her primary care doctor within 48 hours for reevaluation. Portions of this note were created with voice recognition technology. There may be grammatical, spelling, punctuation or sound alike errors Complex due to problem addresses moderate acute complicated. No critical care time. Complex of data reviewed and analyzed is moderate. Dr. Collins independently reviewed the x-rays of the left hand wrist and forearm. No acute findings observed. Risk of complication and or risk of morbidity/mortality patient management is moderate. A left upper extremity sling applied. Prescription for Toradol for to the patient's pharmacy. Patient will be referred to orthopedic clinic for further evaluation and treatment. Vital stable. Time spent to discharge patient is approximately 15 minutes. Plan of care established for shared decision making. No social determinants of health presents to impede follow-up Portions of this note were created with voice recognition technology. There may be grammatical, spelling, punctuation or sound alike errors 07/09/24 07:51 07/09/24 07:55 Counseled pt/family regarding: diagnosis, need for follow-up, rad results - Departure Departure Disposition: Home Clinical Impression: Wrist strain, Hand strain, Forearm strain Condition: Stable Critical Care Time: No Referrals: LA MASON NP [Primary Care Provider] - Follow up/PCP as directed Instructions: Common wrist injuries, Common Wrist Injuries ED Additional Instructions: Discharge/Care Plan MARILEEALYCE Wai was seen on 07/09/24 in the Emergency Room. The patient was counseled regarding Diagnosis,Lab results, Imaging studies, need for follow up and when to return to the Emergency Room. Prescriptions given: Discharge Note I have spoken with the patient and/or caregivers. I have explained the patient's condition, diagnosis and treatment plan based on the information available to me at this time. I have answered the patient's and/or caregiver's questions and addressed any concerns. The patient and/or caregivers have as good understanding of the patient's diagnosis, condition and treatment plan as can be expected at this point. The vital signs have been stable. The patient's condition is stable and appropriate for discharge from the emergency department. The patient will pursue further outpatient evaluation with the primary care physician or other designated or consulting physician as outlined in the discharge instructions. The patient and/or caregivers are agreeable to this plan of care and follow-up instructions have been explained in detail. The patient and/or caregivers have received these instruction. The patient/and or caregivers are aware that any significant change in condition or worsening of symptoms should prompt an immediate return to this or the closest emergency department or call 911. Prescriptions: Ketorolac Trometh 10 mg Tab [TORAdol 10 MG TABLET] 10 mg PO TID 5 Days #15 tablet Outpatient Orders: Ortho Referral Time Frame: 1 Day, Facility: [facility], Location: [facility] [place]
[2024-07-09] MEDS: TORAdol 10 MG TABLET PO ONE (08:31)
--- NOTE | 2024-07-09 08:37 | XRAY ---
Indication: Pain and swelling following injury. Comparison: None 3 view left wrist demonstrates normal bones, articulation, and soft tissues.
--- NOTE | 2024-07-09 08:37 | XRAY ---
Indication: Pain following injury. Comparison: None 2 view left forearm demonstrates normal bones, articulation, and soft tissues.
--- NOTE | 2024-07-09 08:37 | XRAY ---
Indication: Pain and swelling following injury. Comparison: None 3 view left hand demonstrates normal bones, articulation, and soft tissues.
[2024-07-09 08:43] VITALS: BP 113/81; PULSE 70; RESP 17
[2024-07-09 08:44] VITALS: O2SAT 97
== END 2024-07-09 08:40 | disposition home or self-care (01) ==
LOC: ED 07:18
DX: S66.912A Strain of unspecified muscle, fascia and tendon at wrist and hand level, left hand, initial encounter (principal); S56.912A Strain of unspecified muscles, fascia and tendons at forearm level, left arm, initial encounter; X50.0XXA Overexertion from strenuous movement or load, initial encounter; Z79.899 Other long term (current) drug therapy
CPT/HCPCS: 73090; 73110; 73130; 99283; A4570; A9270-GY

== ENCOUNTER 2024-10-17 21:14 | Emergency (ER) | payer BC ==
[2024-10-17 21:36] VITALS: RESP 16; TEMP 97.8
[2024-10-17] MEDS ORDERED: DELTASONE 20 MG ONE (21:36)
[2024-10-17 21:37] VITALS: BP 118/86; PULSE 86
[2024-10-17] MEDS: DELTASONE 20 MG PO ONE (21:37)
[2024-10-17 21:39] VITALS: O2SAT 96
--- NOTE | 2024-10-17 21:40 | ERPHSYRPT ---
- History of Present Illness Time Seen by Provider: 10/17/24 21:25 Source: patient Exam Limitations: no limitations Physician History: 34 years old presented in the ER with complaints of left lower ankle/foot area spider bite almost a week ago. Patient reported initially about swelling with redness which started to improve and today she was having increased itching and there was a skin break with some oozing. Patient did not report any discharge of pus. Patient has no fever or chills. 2 x 2 cm area of minimal swelling with no tenderness in the left lower lateral part of the heel below the lateral malleolus. No discharge. I will treat with steroids topical and oral. Patient is up-to-date with tetanus. Do not think needs antibiotic. Recommended supportive care and outpatient follow-up. Discussed signs symptoms of worsening needing return to ER which she seems understanding. Allergies/Adverse Reactions: Penicillins Allergy (Verified 10/17/24 21:20) Home Medications: Medroxyprogesterone Acetate [Depo-Subq Provera 104] 150 mg IM UD 02/17/23 [History] Hydroxyzine HCl 25 mg [Atarax 25 mg] 25 mg PO HS 10/17/24 [History] Hx Tetanus, Diphtheria Vaccination/Date Given: Yes Hx Influenza Vaccination/Date Given: No Hx Pneumococcal Vaccination/Date Given: No Travel Risk - Emerging Infectious Disease Are you exhibiting symptoms associated with any current EIDs: No - Review of Systems Constitutional: No Symptoms Respiratory: No Symptoms Cardiac: No Symptoms Abdominal/Gastrointestinal: No Symptoms Skin: Pruritis, Rash, Skin Lesions Neurological: No Symptoms - Past Medical History Pertinent Past Medical History: Yes Neurological History: No Pertinent History ENT History: No Pertinent History Cardiac History: No Pertinent History Respiratory History: No Pertinent History Endocrine Medical History: No Pertinent History, Other Musculoskeletal History: No Pertinent History GI Medical History: No Pertinent History History: No Pertinent History Psycho-Social History: Anxiety, Depression Female Reproductive Disorders: No Pertinent History Other Medical History: herpes, sponge kidney, hx uti's - Past Surgical History Past Surgical History: No Neuro Surgical History: No Pertinent History Cardiac: No Pertinent History Respiratory: No Pertinent History Genitourinary: No Pertinent History Musculoskeletal: No Pertinent History Female Surgical History: No Pertinent History Other Surgical History: IUD removal - Social History Smoking Status: Former smoker How long have you smoked: 15 YEARS Exposure to second hand smoke: Yes Drug Use: none Patient Lives Alone: No - Social Determinants of Health Will the patient participate in the screening: Yes Do you worry about a steady place to live?: No In the past 12 months,have you had to go without utilities?: No Transportation Issues: No Has anyone in your support network made you feel unsafe?: No Have you or anyone in your house had to go without enough: No - Physical Exam General Appearance: no apparent distress Neck Exam: normal inspection, supple, full range of motion Respiratory Exam: normal breath sounds, lungs clear Cardiovascular Exam: regular rate/rhythm, normal heart sounds Extremity Exam: normal range of motion, pelvis stable Neurologic Exam: alert, oriented x 3, cooperative Skin Exam: normal color, rash SpO2 Interpretation: normal SpO2: 96 O2 Delivery: Room Air Ordered Tests: Medication Summary Discontinued Medications Generic Name Dose Route Start Last Admin Trade Name Freq PRN Reason Stop Dose Admin Prednisone 60 mg 10/17/24 21:32 Prednisone 20 Mg Tablet PO 10/17/24 21:33 STAT ONE - Progress Progress: unchanged Progress Note: 10/17/24 21:38 34 years old presented in the ER with complaints of left lower ankle/foot area spider bite almost a week ago. Patient reported initially about swelling with redness which started to improve and today she was having increased itching and there was a skin break with some oozing. Patient did not report any discharge of pus. Patient has no fever or chills. 2 x 2 cm area of minimal swelling with no tenderness in the left lower lateral part of the heel below the lateral malleolus. No discharge. I will treat with steroids topical and oral. Patient is up-to-date with tetanus. Do not think needs antibiotic. Recommended supportive care and outpatient follow-up. Discussed signs symptoms of worsening needing return to ER which she seems understanding. Counseled pt/family regarding: diagnosis, need for follow-up Medical Desision Making - Diagnostic Testing Diagnostic test were ordered, analyzed, and reviewed by me: No - Risk of complications The pt has a mod risk of morbidity or mortality based on: Need for prescription drug management - Departure Departure Disposition: Home Clinical Impression: Spider bite Condition: Stable Critical Care Time: No Referrals: LA MASON NP [Primary Care Provider] - Follow up with PCP 1 day Instructions: Insect Bites and Stings ED Additional Instructions: Intermittent ice application. Topical steroid application as needed. Follow-up with primary care for reevaluation. Return to ER for increasing redness swelling or if having discharge/fever chills etc. Prescriptions: Prednisone 20 mg [Deltasone 20 mg] 40 mg PO DAILY 5 Days #10 tablet
== END 2024-10-17 21:45 | disposition home or self-care (01) ==
LOC: ED 21:14
DX: S90.862A Insect bite (nonvenomous), left foot, initial encounter (principal); W57.XXXA Bitten or stung by nonvenomous insect and other nonvenomous arthropods, initial encounter; Z79.52 Long term (current) use of systemic steroids; Z79.899 Other long term (current) drug therapy
CPT/HCPCS: 99282; 99283; A9270-GY